=== PATIENT | female | born 1960 | race Two or more races ===

== ENCOUNTER 2023-03-27 14:47 | Emergency (ER) | payer MEDICAID ==
[~2023-03-27] VITALS: Ht 157.5 cm; Wt 55.3 kg
[2023-03-27 15:42] LABS: Urine Bacteria NONE SEEN /hpf (None Seen); Urine Blood TRACE /uL (Negative); Urine Clarity HAZY (Clear); Urine Color Yellow (Yellow); Urine Mucus FEW (None Seen); Urine Protein, UAD 1+ (Negative); Urine Specific Gravity 1.029 (1.001-1.035); Urine WBC 17 /hpf (0 - 5); Urine pH 5.5 (5.0-8.0)
[2023-03-27 15:53] LABS: Basophils # (auto) 0 10 ^3/uL (0-0.2); Basophils % (auto) 0.5 % (0.0-2.0); Eosinophils # (auto) 0.1 10 ^3/uL (0-0.8); Eosinophils % (auto) 0.9 % (0.0-7.0); Hematocrit 36.9 % (36.0-46.0); Hemoglobin 12.5 g/dL (12.2-16.2); Lymphocytes # (auto) 1.7 10 ^3/uL (0.4-5.4); Lymphocytes % (auto) 24.7 % (10.0-50.0); Mean Corpuscular Hemoglobin 32.9 pg (28.0-32.0); Mean Corpuscular Hgb Conc. 33.8 g/dL (32.0-36.0); Mean Corpuscular Volume 97.4 fL (80.0-100.0); Monocytes # (auto) 0.6 10 ^3/uL (0-1.3); Monocytes % (auto) 8.3 % (0.0-12.0); Neutrophils # (auto) 4.6 10 ^3/uL (1.6-8.6); Neutrophils % (auto) 65.6 % (37.0-80.0); Nucleated Red Blood Cells % 0.1 %; Red Blood Cells 3.79 10^6/uL (4.0-5.20); Red Cell Distribution Width 13.3 % (11.8-14.3); White Blood Cell 7.1 10^3/uL (4.4-10.8)
[2023-03-27 16:10] LABS: Alanine Aminotransferase 20 U/L (7-40); Alkaline Phosphatase 119 U/L (46-116); Anion Gap 3 (5-15); Aspartate Aminotransferase 15 U/L (13-40); BUN/Creatinine Ratio 25.8 (10.0-20.0); Blood Urea Nitrogen 17 mg/dL (9-23); Carbon Dioxide 29 mmol/L (20-30); Chloride 110 mmol/L (98-107); Glucose 106 mg/dL (74-106); Lipase 41 U/L (12-53); Sodium 142 mmol/L (136-145)
[2023-03-27 16:11] LABS: Albumin 3.9 g/dL (3.2-4.8); Bilirubin, Total 0.6 mg/dL (0.2-1.0); Total Protein 5.9 g/dL (5.7-8.2)
[2023-03-27] MEDS ORDERED: ONDANSETRON HCL 4 MG/2 ML VIAL IV ONE (19:30)
[2023-03-27] MEDS ORDERED: SODIUM CHLORIDE 0.9% 1,000 ML IV ONE (19:30)
[2023-03-27] MEDS ORDERED: FAMOTIDINE (10MG/ML) 2ML VL IV ONE (19:30)
[2023-03-27] MEDS ORDERED: MORPHINE SULFATE 4 MG/ML SYR/VIAL IV ONE (19:30)
[2023-03-27] MEDS ORDERED: cefTRIAXone 1GM/50ML D5W 50 ML IV ONE (19:30)
[2023-03-27] MEDS ORDERED: CEPH500C PO (19:31)
[2023-03-27] MEDS ORDERED: FAMO20TA10 PO (19:31)
[2023-03-27] MEDS ORDERED: HYDR-4902 PO (19:31)
[2023-03-27] MEDS ORDERED: ZOFR4T PO (19:31)
[2023-03-27 20:40] VITALS: PULSE 56; RESP 16; TEMP 98.1; O2SAT 99
[2023-03-27 21:16] VITALS: BP 126/53; PULSE 52; RESP 16
== END 2023-03-27 21:49 | disposition home or self-care (01) ==
LOC: ER 14:47
DX: N39.0 Urinary tract infection, site not specified (principal); N13.30 Unspecified hydronephrosis; K29.70 Gastritis, unspecified, without bleeding; N20.0 Calculus of kidney
CPT/HCPCS: 36415; 74176; 80053; 81001; 83690; 84484; 85025; 93005; 96365; 96375; 99285; J0696; J2270; J2405; J3490; J7030

== ENCOUNTER 2024-05-05 08:25 | Inpatient (IN) | payer MEDICAID ==
[~2024-05-05] VITALS: Ht 157.5 cm; Wt 56.8 kg
[~2024-05-05 08:25] MED LIST: CEPH500C PO; FAMO20TA10 PO; HYDR-4902 PO; ZOFR4T PO
[2024-05-05 09:40] LABS: Basophils # (auto) 0 10 ^3/uL (0-0.2); Basophils % (auto) 0.3 % (0.0-2.0); Eosinophils # (auto) 0 10 ^3/uL (0-0.8); Eosinophils % (auto) 0.5 % (0.0-7.0); Hematocrit 42.3 % (36.0-46.0); Lymphocytes # (auto) 1.8 10 ^3/uL (0.4-5.4); Lymphocytes % (auto) 21.3 % (10.0-50.0); Mean Corpuscular Hemoglobin 32.2 pg (28.0-32.0); Mean Corpuscular Hgb Conc. 33.1 g/dL (32.0-36.0); Mean Corpuscular Volume 97.1 fL (80.0-100.0); Monocytes # (auto) 0.7 10 ^3/uL (0-1.3); Monocytes % (auto) 8.7 % (0.0-12.0); Neutrophils # (auto) 5.8 10 ^3/uL (1.6-8.6); Neutrophils % (auto) 69.2 % (37.0-80.0); Nucleated Red Blood Cells % 0.1 %; Platelet Count (auto) 325 10^3/uL (140-450); Red Blood Cells 4.36 10^6/uL (4.0-5.20); Red Cell Distribution Width 13.5 % (11.8-14.3); White Blood Cell 8.4 10^3/uL (4.4-10.8)
[2024-05-05 09:41] LABS: Urine Bacteria None Seen /hpf (None Seen)
[2024-05-05 09:47] LABS: Chloride 104 mmol/L (98-107); Sodium 139 mmol/L (136-145)
[2024-05-05 09:48] LABS: Anion Gap 6 (5-15); Calcium 9.8 mg/dL (8.7-10.4); Carbon Dioxide 29 mmol/L (20-31)
[2024-05-05 09:53] LABS: BUN/Creatinine Ratio 17.6 (10.0-20.0); Blood Urea Nitrogen 12 mg/dL (9-23); Glucose 108 mg/dL (74-106)
[2024-05-05 10:00] LABS: Urine Blood 1+ /uL (Negative); Urine Clarity Clear (Clear); Urine Color Light-Yellow (Yellow); Urine Protein, UAD Negative (Negative); Urine Specific Gravity 1.014 (1.001-1.035); Urine Urobilinogen Normal (Negative); Urine WBC 2 /hpf (0 - 5); Urine pH 7.5 (5.0-9.0)
[2024-05-05 10:10] VITALS: PULSE 60; RESP 12; O2SAT 97
[2024-05-05] MEDS: SODIUM CHLORIDE 0.9% 1,000 ML IV SCH ×2 (13:00→15:30)
[2024-05-05] MEDS: IOHEXOL 300 MG/ML 100ML BOTTLE IJ ONE (13:29)
[2024-05-05] MEDS: NICOTINE 7MG/24HR TOPICAL PATCH TD ONE (15:15)
[2024-05-05] MEDS ORDERED: ONDANSETRON HCL 4 MG/2 ML VIAL IV PRN ×2 (15:15→15:30)
[2024-05-05] MEDS: PANTOPRAZOLE 40 MG/10 ML VIAL INJ IV ONE (15:15)
[2024-05-05] MEDS ORDERED: HYDROcodone-ACET 5/325MG TAB PO PRN ×2 (15:15→15:30)
[2024-05-05] MEDS ORDERED: NICOTINE 7MG/24HR TOPICAL PATCH TD ONE (15:15)
[2024-05-05] MEDS ORDERED: PANTOPRAZOLE 40 MG/10 ML VIAL INJ IV ONE (15:15)
[2024-05-05] MEDS ORDERED: SODIUM CHLORIDE 0.9% 1,000 ML IV SCH (15:15)
[2024-05-05 19:45] VITALS: PULSE 54; RESP 15; O2SAT 96
[2024-05-05] MEDS ORDERED: ATOR20TA50 PO (21:34)
[2024-05-05 21:35] VITALS: BP 114/43; PULSE 53; RESP 18; TEMP 97.3; O2SAT 97
[2024-05-06] VITALS (7 sets, daily range): BP systolic 103–121; BP diastolic 49–62; PULSE 50–67; RESP 16–18; TEMP 97.4–98.2; O2SAT 96–99
[2024-05-06 07:18] LABS: Basophils # (auto) 0 10 ^3/uL (0-0.2); Basophils % (auto) 0.5 % (0.0-2.0); Eosinophils # (auto) 0.1 10 ^3/uL (0-0.8); Eosinophils % (auto) 2.1 % (0.0-7.0); Hematocrit 39.7 % (36.0-46.0); Hemoglobin 13.3 g/dL (12.2-16.2); Lymphocytes # (auto) 1.9 10 ^3/uL (0.4-5.4); Lymphocytes % (auto) 29.8 % (10.0-50.0); Mean Corpuscular Hemoglobin 32.6 pg (28.0-32.0); Mean Corpuscular Hgb Conc. 33.6 g/dL (32.0-36.0); Mean Corpuscular Volume 96.8 fL (80.0-100.0); Monocytes # (auto) 0.5 10 ^3/uL (0-1.3); Monocytes % (auto) 8.4 % (0.0-12.0); Neutrophils # (auto) 3.7 10 ^3/uL (1.6-8.6); Neutrophils % (auto) 59.2 % (37.0-80.0); Platelet Count (auto) 289 10^3/uL (140-450); Red Cell Distribution Width 13.1 % (11.8-14.3); White Blood Cell 6.3 10^3/uL (4.4-10.8)
[2024-05-06] MEDS: PANTOPRAZOLE 40 MG/10 ML VIAL INJ IV SCH (09:37)
[2024-05-06] MEDS: NICOTINE 7MG/24HR TOPICAL PATCH TD SCH (09:39)
[2024-05-06] MEDS ORDERED: PANTOPRAZOLE 40 MG/10 ML VIAL INJ IV SCH (10:00)
[2024-05-06] MEDS ORDERED: NICOTINE 7MG/24HR TOPICAL PATCH TD SCH (10:00)
[2024-05-06] MEDS ORDERED: TAMS-35 PO (14:05)
[2024-05-06] MEDS ORDERED: ZOFR4T PO (14:05)
== END 2024-05-06 17:05 | disposition home or self-care (01) | DRG 465 ==
LOC: ER 08:25 → OVERFLOW 15:04 → ER 15:06 → WEST WING 21:32
PROVIDERS: ADMIT Registered Nurse; ATTEND Student in an Organized Health Care Education/Training Program
DX: N20.0 Calculus of kidney (principal); A08.4 Viral intestinal infection, unspecified; F17.200 Nicotine dependence, unspecified, uncomplicated; Z79.899 Other long term (current) drug therapy
CPT/HCPCS: 36415; 74177; 80048; 81001; 85025; G0378; J2470